=== PATIENT | female | born 1955 | race Asian ===

== ENCOUNTER → 2017-08-26 | Day surgery (SDC) | payer OTHER ==
[2017-08-20 15:28] LABS: BASOPHILS % 0.7 % (0.0-1.0); EOSINOPHILS # (AUTO) 0.1 (0.0-0.4); EOSINOPHILS % 2.7 % (0.0-6.0); HEMATOCRIT 40.1 % (34.2-44.1); HEMOGLOBIN 13.3 g/dL (12.0-16.0); LYMPHOCYTES % 45.5 % (18.0-39.1); MEAN CORPUSCULAR HEMOGLOBIN 32.4 pg (28-32); MEAN CORPUSCULAR HGB CONC 33.2 g/dL (31-35); MEAN CORPUSCULAR VOLUME 97.8 fL (81-99); MONOCYTES # (AUTO) 0.4 (0.2-0.8); MONOCYTES % 9.6 % (4.4-11.3); NEUTROPHILS # (AUTO) 1.9 (2.1-6.9); NEUTROPHILS % 41.5 % (38.7-80.0); PLATELET COUNT 176 x10e3/uL (140-360); RED CELL DISTRIBUTION WIDTH 12.1 % (11.7-14.4)
[2017-08-20 15:42] LABS: ANION GAP 10.7 mmol/L (8-16); BLOOD UREA NITROGEN 12 mg/dL (7-26); BUN/CREATININE RATIO 13 (6-25); CALCIUM 9.2 mg/dL (8.4-10.2); CARBON DIOXIDE 29 mmol/L (22-29); CHLORIDE 102 mmol/L (98-107); CREATININE, SERUM 0.91 mg/dL (0.57-1.11); EST GLOMERULAR FILTRATION RATE > 60 ML/MIN (60-); GLUCOSE 86 mg/dL (74-118); POTASSIUM 3.7 mmol/L (3.5-5.1); SODIUM 138 mmol/L (136-145)
[~2017-08-26] MED LIST: BUPIVACAINE HCL 0.5% INJ 30 ML VIAL INJ ONE; CEFAZOLIN SOD 1 GM VIAL ONE; DEXAMETHASONE SOD PHOS INJ 4 MG/ML VIAL ONE; EPHEDRINE SULFATE INJ 50 MG/10 ML SYR ONE; FENTANYL CITRATE/PF 100MCG/2 ML INJ ONE; KETOROLAC TROMETHAMINE 30 MG/ML VIAL ONE; LIDOCAINE HCL 2% LOCAL INJ 5 ML SDV VIAL INJ ONE; MIDAZOLAM HCL 2 MG/2 ML VIAL ONE; ONDANSETRON HCL INJ 2 MG/ML VIAL ONE; ONE DAILY WOME1 EACH PO; PROPOFOL IV EMULSION 10 MG/ML 20 ML VIAL ONE; SEVOFLURANE INHAL SOLN 250 ML PEN BTL ONE; VIT E PO
--- NOTE | 2017-08-26 11:29 | Operative Report ---
DATE OF PROCEDURE: August 26, 2017 PREOPERATIVE DIAGNOSIS: Right breast mass. POSTOPERATIVE DIAGNOSIS: Right breast mass. PROCEDURE PERFORMED: Excision of right breast mass. NURSE ANESTHESIA PROGRAM DIRECTOR: None. ANESTHESIA: General. INDICATIONS AND FINDINGS: The patient is a 61-year-old female with a mass in the right breast, which was found to be a complex cystic mass containing hemorrhagic fluid. At surgery, the patient was found to have a thick-walled, complex cystic mass in the right breast at approximately 1 o'clock position, which was completely excised. It contained hemorrhagic fluid within the cyst. TECHNIQUE: After adequate general anesthesia, with the patient in the supine position, the right breast was prepped and draped in a sterile fashion with [place] solution. Transverse incision was made over the area of the mass and carried through the subcutaneous tissue down until the breast tissue was seen. The mass was identified. It was completely excised from the surrounding tissues. It was a complex cystic mass containing hemorrhagic fluid. Once the mass was removed, hemostasis was achieved with electrocautery. The wound was irrigated with saline and inspected for hemostasis, which was seen to be adequate. The wound was then infiltrated with 1/2 percent Marcaine. The wound was closed in layers with 3-0 Vicryl in the subcutaneous tissue and 4-0 Vicryl subcuticular to the skin. Dermabond and sterile dressing were applied. Patient tolerated the procedure well. Estimated blood loss was 20 mL. There were no complications. All counts were correct. Patient was taken to the recovery room in satisfactory condition. Job#: [id number]
== END | disposition home or self-care (01) ==
LOC: OR 08:52
PROVIDERS: ATTEND Surgery
DX: N60.01 Solitary cyst of right breast (principal); R58 Hemorrhage, not elsewhere classified; R00.1 Bradycardia, unspecified; Z01.810 Encounter for preprocedural cardiovascular examination; Z01.812 Encounter for preprocedural laboratory examination
CPT/HCPCS: 19120; 36415; 80048; 85025; 88305; 93005; J0690; J1100; J1885; J2001; J2250; J2405